=== PATIENT | female | born 1950 | race Caucasian/White ===

== ENCOUNTER 2018-03-27 23:21 | Emergency (ER) | payer MEDICARE ==
[~2018-03-27] VITALS: Ht 154.9 cm; Wt 86.2 kg
[2018-03-27 23:34] VITALS: BP_SYST 128
[2018-03-27] MEDS ORDERED: KETOROLAC TROMETHAMINE 15 MG VIAL IM ONE (23:45)
[2018-03-27] MEDS ORDERED: CYCLOBENZAPRINE HCL 10 MG TABLET (FLEXERIL) PO ONE (23:45)
[2018-03-28 00:15] VITALS: BP_SYST 126
== END 2018-03-28 00:15 | disposition home or self-care (01) ==
LOC: SED 23:21
DX: S29.012A Strain of muscle and tendon of back wall of thorax, initial encounter (principal); S39.012A Strain of muscle, fascia and tendon of lower back, initial encounter; M62.838 Other muscle spasm; R03.0 Elevated blood-pressure reading, without diagnosis of hypertension; Z88.0 Allergy status to penicillin; W20.8XXA Other cause of strike by thrown, projected or falling object, initial encounter; Y93.89 Activity, other specified; Y92.89 Other specified places as the place of occurrence of the external cause; Y99.8 Other external cause status
CPT/HCPCS: 72072; 72100; 96372; 99284; J1885